=== PATIENT | female | born 1985 | race Hispanic/Latino ===

== ENCOUNTER 2023-01-05 07:24 | Emergency (ER) | payer OTHER ==
[~2023-01-05] VITALS: Ht 167.6 cm; Wt 66.7 kg
[2023-01-05 09:25] VITALS: BP 126/74
[2023-01-05] MEDS ORDERED: DIPH1POW20 PO (09:27)
== END 2023-01-05 09:40 | disposition home or self-care (01) ==
LOC: EDH 07:24
DX: B34.9 Viral infection, unspecified (principal); Z20.822 Contact with and (suspected) exposure to COVID-19
CPT/HCPCS: 99283; 87635; 87880; 87804 ×2; C9803